=== PATIENT | male | born 1935 | race Hispanic/Latino ===

== ENCOUNTER 2017-11-13 22:49 | Emergency (ER) | payer OTHER ==
[~2017-11-13 22:49] MED LIST: ALBU18HF7 IH; ALBU2.5V2 IH; ATOR20TA65 PO; CILO50TA PO; DIGO0.12 PO; DILT120C47 PO; FURO40TA5 PO; INSU100V12 SQ; LINA5TAB PO; METO50TA18 PO; MOME220A2 IH; MONT10TA24 PO; MV,M1TAB4 PO; THEO400T3 PO; TIOT18CA3 IH; VALS80TA30 PO; [UNRECOGNIZED DRUG - OTHER] PO
[2017-11-13] MEDS ORDERED: SODIUM CHLORIDE 0.9% 1000ML 1,000 ML IV ONE (23:20)
[2017-11-14] MEDS ORDERED: HYDRALAZINE HCL 20 MG/ML VIAL ONE
[2017-11-14 00:03] LABS: CREATININE 1.2 mg/dL (0.5-1.5); POTASSIUM 3.7 mmol/L (3.5-5.1)
[2017-11-14 00:08] LABS: ALBUMIN 3.3 g/dL (3.5-5.0); BILIRUBIN,TOTAL 0.5 mg/dL (0.2-1.0); INR 1.18 (0.85-1.15); PARTIAL THROMBOPLASTIN TIME 41.1 SEC (26.3-35.5); PROTHROMBIN TIME 12.4 SEC (9.6-11.6); TOTAL PROTEIN, SERUM 7.1 g/dL (6.0-8.3)
[2017-11-14 00:11] LABS: BASOPHILS % (AUTO) 0.8 % (0.0-5.0); EOSINOPHILS % (AUTO) 2.5 % (0.0-8.0); HEMATOCRIT 39.7 % (42-54); LYMPHOCYTES % (AUTO) 22.5 % (21.0-51.0); MEAN CORPUSCULAR HEMOGLOBIN 30.4 pg (27.0-33.0); MEAN CORPUSCULAR HGB CONC 33.7 g/dL (32.0-36.0); MONOCYTES % (AUTO) 7.5 % (3.0-13.0); NEUTROPHILS % (AUTO) 66.7 % (40.0-77.0); PLATELET COUNT (AUTO) 229 K/uL (130-400); RED BLOOD CELL COUNT(AUTO) 4.41 MIL/uL (4.50-6.20); RED CELL DISTRIBUTION WIDTH 16.8 % (11.0-15.5); WHITE BLOOD COUNT (AUTO) 15.5 K/uL (4.8-10.8)
[2017-11-14] MEDS ORDERED: ISOVUE-370 50ML VIAL IV ONE (00:11)
== END 2017-11-14 02:14 | disposition home or self-care (01) ==
LOC: EDH 22:49
DX: L03.211 Cellulitis of face (principal); E11.9 Type 2 diabetes mellitus without complications; E78.00 Pure hypercholesterolemia, unspecified; I10 Essential (primary) hypertension; R79.1 Abnormal coagulation profile; I25.10 Atherosclerotic heart disease of native coronary artery without angina pectoris; J44.9 Chronic obstructive pulmonary disease, unspecified; Z98.890 Other specified postprocedural states
CPT/HCPCS: 36415; 70487; 80053; 85025; 85610; 85730; 93005; 99285; J0360; J7030; Q9967

== ENCOUNTER 2017-11-16 00:10 | Inpatient (IN) | payer OTHER ==
[~2017-11-16] VITALS: Ht 170.2 cm; Wt 71.4 kg
[2017-11-16] MEDS ORDERED: NITROGLYCERIN 0.4 MG SL TAB SL ONE (00:30)
[2017-11-16 00:31] LABS: PLATELET COUNT (AUTO) 230 K/uL (130-400)
[2017-11-16 00:38] LABS: CREATININE 1.2 mg/dL (0.5-1.5); POTASSIUM 3.6 mmol/L (3.5-5.1)
[2017-11-16 00:39] LABS: BASOPHILS % (AUTO) 0.7 % (0.0-5.0); EOSINOPHILS % (AUTO) 3.5 % (0.0-8.0); INR 1.05 (0.85-1.15); LYMPHOCYTES % (AUTO) 34.6 % (21.0-51.0); MEAN CORPUSCULAR HEMOGLOBIN 30.5 pg (27.0-33.0); MEAN CORPUSCULAR HGB CONC 33.7 g/dL (32.0-36.0); MEAN CORPUSCULAR VOLUME 90.6 fL (79-99); MONOCYTES % (AUTO) 7.9 % (3.0-13.0); NEUTROPHILS % (AUTO) 53.3 % (40.0-77.0); PARTIAL THROMBOPLASTIN TIME 34.2 SEC (26.3-35.5); RED BLOOD CELL COUNT(AUTO) 4.19 MIL/uL (4.50-6.20); RED CELL DISTRIBUTION WIDTH 17.2 % (11.0-15.5); WHITE BLOOD COUNT (AUTO) 12.9 K/uL (4.8-10.8)
[2017-11-16 00:51] LABS: ALBUMIN 2.9 g/dL (3.5-5.0); BILIRUBIN,TOTAL 0.3 mg/dL (0.2-1.0); CREATINE KINASE MB 5.1 ng/mL (0.5-3.6); TOTAL PROTEIN, SERUM 6.6 g/dL (6.0-8.3)
[2017-11-16] MEDS ORDERED: ASPIRIN 325 MG TABLET ONE (04:09)
[2017-11-16 04:41] VITALS: BP 172/92
[2017-11-16] MEDS ORDERED: POTASSIUM CHLORIDE 20MEQ/100ML 100 ML IV PRN (05:15)
[2017-11-16] MEDS ORDERED: LIDOCAINE HCL-MPF 1% 2ML VIAL IJ PRN (05:15)
[2017-11-16] MEDS ORDERED: POTASSIUM CHLORIDE 20 MEQ ERTAB PO PRN (05:15)
[2017-11-16] MEDS ORDERED: POTASSIUM CHLORIDE 10% ELIXIR 20 MEQ/15 ML UDCUP PO PRN (05:15)
[2017-11-16] MEDS ORDERED: METOPROLOL TARTRATE 25 MG TAB ONE (06:03)
[2017-11-16 07:11] LABS: CREATINE KINASE MB 6.1 ng/mL (0.5-3.6); TROPONIN I 0.43 ng/mL (0.00-0.06)
[2017-11-16] MEDS ORDERED: SODIUM CHLORIDE 0.9% 10 ML VIAL IVP PRN (07:30)
[2017-11-16 08:00] VITALS: BP 138/73
[2017-11-16] MEDS ORDERED: ENOXAPARIN SODIUM 40 MG/0.4 ML SYRINGE SQ SCH (09:00)
[2017-11-16] MEDS: METOPROLOL TARTRATE 25 MG TAB PO SCH ×2 (09:00→21:34)
[2017-11-16] MEDS: NITROGLYCERIN 1GM/1 INCH PACKET TD SCH ×3 (09:59→21:35)
[2017-11-16] MEDS: ASPIRIN 81MG TAB.CHEW PO SCH (09:59)
[2017-11-16] MEDS ORDERED: OMEG-112 PO (10:17)
[2017-11-16] MEDS ORDERED: TYL3B PO (10:17)
[2017-11-16] MEDS ORDERED: DIGO125T87 PO (10:17)
[2017-11-16] MEDS ORDERED: METO-391 PO (10:17)
[2017-11-16] MEDS ORDERED: FLUT1AER IH (10:17)
[2017-11-16] MEDS ORDERED: CEPH500T PO (10:23)
[2017-11-16] MEDS ORDERED: CLIN300C9 PO (10:23)
[2017-11-16 11:00] VITALS: BP 118/69
[2017-11-16] MEDS: CEPHALEXIN 500 MG CAPSULE PO SCH ×2 (12:04→21:35)
[2017-11-16 12:42] LABS: CREATINE KINASE MB 5.5 ng/mL (0.5-3.6); TROPONIN I 0.46 ng/mL (0.00-0.06)
[2017-11-16] MEDS: CLOPIDOGREL BISULFATE 75 MG TAB PO SCH (13:51)
[2017-11-16] MEDS: ENOXAPARIN SODIUM 40 MG/0.4 ML SYRINGE SQ SCH (13:52)
[2017-11-16] MEDS: CLINDAMYCIN HCL 150 MG CAP PO SCH ×2 (14:00→21:35)
[2017-11-16 16:00] VITALS: BP 152/76
[2017-11-16] MEDS: ISOSORBIDE MONO 60 MG TAB.SR PO SCH (17:39)
[2017-11-16] MEDS ORDERED: DEXTROSE 50%-WATER 50 ML DISP.SYRIN IV PRN (17:45)
[2017-11-16] MEDS ORDERED: GLUCAGON 1MG KIT 1 MG ML IM PRN (17:45)
[2017-11-16] MEDS: BUDESONIDE 0.5 MG/2 ML INH IH SCH (19:01)
[2017-11-16] MEDS: ALBUTEROL SULFATE 0.083% 2.5 MG/3 ML INH IH SCH ×2 (19:01→23:50)
[2017-11-16 20:37] VITALS: BP 136/54
[2017-11-16] MEDS: PANTOPRAZOLE SODIUM 40 MG TABLET.DR PO SCH (21:34)
[2017-11-16] MEDS: MONTELUKAST SODIUM 10 MG TAB PO SCH (21:34)
[2017-11-16] MEDS: ATORVASTATIN CALCIUM 20 MG TABLET PO SCH (21:35)
[2017-11-17 00:35] VITALS: BP 122/56
[2017-11-17] MEDS: NITROGLYCERIN 1GM/1 INCH PACKET TD SCH ×4 (02:37→20:45)
[2017-11-17 06:12] VITALS: BP 143/65
[2017-11-17] MEDS: ALBUTEROL SULFATE 0.083% 2.5 MG/3 ML INH IH SCH ×4 (06:28→23:18)
[2017-11-17] MEDS: BUDESONIDE 0.5 MG/2 ML INH IH SCH ×2 (06:41→18:48)
[2017-11-17] MEDS: INSULIN GLARGINE 100 UNITS/ML 10 ML VIAL SQ SCH (07:14)
[2017-11-17] MEDS: INSULIN HUMULIN R 100 UNIT/ML 3ML SQ SCH ×4 (07:30→21:00)
[2017-11-17 08:00] VITALS: BP 131/60
[2017-11-17] MEDS ORDERED: MAGNESIUM 2GM PREMIX 50ML 50 ML IV SCH (08:00)
[2017-11-17] MEDS ORDERED: FLUTICASONE/VILANTEROL 1 EACH AER.POW.BA IH SCH (09:00)
[2017-11-17] MEDS: ENOXAPARIN SODIUM 40 MG/0.4 ML SYRINGE SQ SCH (09:20)
[2017-11-17] MEDS: CLINDAMYCIN HCL 150 MG CAP PO SCH ×3 (09:21→22:57)
[2017-11-17] MEDS: CLOPIDOGREL BISULFATE 75 MG TAB PO SCH (09:21)
[2017-11-17] MEDS: METOPROLOL TARTRATE 25 MG TAB PO SCH ×2 (09:22→22:56)
[2017-11-17] MEDS: ISOSORBIDE MONO 60 MG TAB.SR PO SCH (09:22)
[2017-11-17] MEDS: ASPIRIN 81MG TAB.CHEW PO SCH (09:22)
[2017-11-17] MEDS: FUROSEMIDE 40 MG TABLET PO SCH (09:22)
[2017-11-17] MEDS: CEPHALEXIN 500 MG CAPSULE PO SCH ×2 (09:22→22:56)
[2017-11-17] MEDS: PANTOPRAZOLE SODIUM 40 MG TABLET.DR PO SCH (09:22)
[2017-11-17] MEDS: POTASSIUM CHLORIDE 10% ELIXIR 20 MEQ/15 ML UDCUP PO SCH (09:23)
[2017-11-17 11:00] VITALS: BP 134/69
[2017-11-17 16:00] VITALS: BP 129/70
[2017-11-17 20:00] VITALS: BP 160/78
[2017-11-17] MEDS: ATORVASTATIN CALCIUM 20 MG TABLET PO SCH (22:56)
[2017-11-17] MEDS: MONTELUKAST SODIUM 10 MG TAB PO SCH (22:57)
[2017-11-18] VITALS (13 sets, daily range): BP systolic 120–155; BP diastolic 62–80
[2017-11-18] MEDS: NITROGLYCERIN 1GM/1 INCH PACKET TD SCH ×4 (03:42→22:47)
[2017-11-18] MEDS: INSULIN HUMULIN R 100 UNIT/ML 3ML SQ SCH ×4 (06:15→21:00)
[2017-11-18] MEDS: METOPROLOL TARTRATE 25 MG TAB PO SCH ×2 (06:16→22:47)
[2017-11-18] MEDS: INSULIN GLARGINE 100 UNITS/ML 10 ML VIAL SQ SCH (06:16)
[2017-11-18] MEDS: ALBUTEROL SULFATE 0.083% 2.5 MG/3 ML INH IH SCH ×4 (06:42→23:37)
[2017-11-18] MEDS: BUDESONIDE 0.5 MG/2 ML INH IH SCH ×2 (07:00→18:21)
[2017-11-18] MEDS ORDERED: SODIUM CHLORIDE 0.9% 500ML 500 ML IV SCH (07:00)
[2017-11-18 07:11] LABS: HEMATOCRIT 32.9 % (42-54); MEAN CORPUSCULAR HEMOGLOBIN 31.5 pg (27.0-33.0); MEAN CORPUSCULAR HGB CONC 35.1 g/dL (32.0-36.0); MEAN CORPUSCULAR VOLUME 89.7 fL (79-99); NUCLEATED RED BLOOD CELLS 0.1 % (0.0-0.19); PLATELET COUNT (AUTO) 231 K/uL (130-400); RED BLOOD CELL COUNT(AUTO) 3.67 MIL/uL (4.50-6.20); RED CELL DISTRIBUTION WIDTH 17.1 % (11.0-15.5)
[2017-11-18 07:35] LABS: ALBUMIN 2.7 g/dL (3.5-5.0); BILIRUBIN,TOTAL 0.3 mg/dL (0.2-1.0); MAGNESIUM 1.8 mg/dL (1.80-2.40); POTASSIUM 3.6 mmol/L (3.5-5.1); TOTAL PROTEIN, SERUM 5.9 g/dL (6.0-8.3)
[2017-11-18 07:52] LABS: INR 1.01 (0.85-1.15); PARTIAL THROMBOPLASTIN TIME 30.8 SEC (26.3-35.5); PROTHROMBIN TIME 10.6 SEC (9.6-11.6)
[2017-11-18] MEDS: ENOXAPARIN SODIUM 40 MG/0.4 ML SYRINGE SQ SCH (09:00)
[2017-11-18] MEDS: PANTOPRAZOLE SODIUM 40 MG TABLET.DR PO SCH (09:00)
[2017-11-18] MEDS: POTASSIUM CHLORIDE 10% ELIXIR 20 MEQ/15 ML UDCUP PO SCH (09:00)
[2017-11-18] MEDS: CLINDAMYCIN HCL 150 MG CAP PO SCH ×3 (09:00→22:47)
[2017-11-18] MEDS: ASPIRIN 81MG TAB.CHEW PO SCH (09:00)
[2017-11-18] MEDS: ISOSORBIDE MONO 60 MG TAB.SR PO SCH (09:00)
[2017-11-18] MEDS: CLOPIDOGREL BISULFATE 75 MG TAB PO SCH (09:00)
[2017-11-18] MEDS: FUROSEMIDE 40 MG TABLET PO SCH (09:00)
[2017-11-18] MEDS: CEPHALEXIN 500 MG CAPSULE PO SCH ×2 (09:00→22:47)
[2017-11-18] MEDS ORDERED: LIDOCAINE HCL 2% 20ML ONE (13:40)
[2017-11-18] MEDS ORDERED: HEPARIN SODIUM 1000UNIT/ML 10ML VIAL ONE (13:40)
[2017-11-18] MEDS ORDERED: NITROGLYCERIN 5 MG/ML 10 ML VIAL IV ONE (13:40)
[2017-11-18] MEDS ORDERED: ISOVUE-370 50ML VIAL IV ONE ×2 (13:40→14:31)
[2017-11-18] MEDS ORDERED: IOPAMIDOL-370 100 ML VIAL IV ONE (13:40)
[2017-11-18] MEDS ORDERED: IOPAMIDOL-370 75 ML VIAL IV ONE (13:55)
[2017-11-18] MEDS ORDERED: BIVALIRUDIN 250 MG/VIAL IV ONE (14:07)
[2017-11-18] MEDS ORDERED: LABETALOL HCL 5 MG/ML 20ML VIAL IV ONE (14:41)
[2017-11-18] MEDS ORDERED: SODIUM CHLORIDE 0.9% 1000ML 1,000 ML IV SCH (14:48)
[2017-11-18] MEDS ORDERED: DEXTROSE 50%-WATER 50 ML DISP.SYRIN IV PRN (15:00)
[2017-11-18] MEDS ORDERED: GLUCAGON 1MG KIT 1 MG ML IM PRN (15:00)
[2017-11-18] MEDS: MONTELUKAST SODIUM 10 MG TAB PO SCH (22:47)
[2017-11-18] MEDS: ATORVASTATIN CALCIUM 20 MG TABLET PO SCH (22:47)
[2017-11-19 03:00] VITALS: BP 117/67
[2017-11-19] MEDS ORDERED: ACETAMINOPHEN 325 MG TAB PO PRN (06:00)
[2017-11-19] MEDS ORDERED: ACETAMINOPHEN 325 MG TAB ONE (06:03)
[2017-11-19] MEDS: NITROGLYCERIN 1GM/1 INCH PACKET TD SCH ×2 (06:06→09:50)
[2017-11-19] MEDS: INSULIN HUMULIN R 100 UNIT/ML 3ML SQ SCH ×2 (06:15→13:53)
[2017-11-19] MEDS: BUDESONIDE 0.5 MG/2 ML INH IH SCH (06:21)
[2017-11-19] MEDS: ALBUTEROL SULFATE 0.083% 2.5 MG/3 ML INH IH SCH ×2 (06:21→11:18)
[2017-11-19] MEDS: INSULIN GLARGINE 100 UNITS/ML 10 ML VIAL SQ SCH (07:30)
[2017-11-19 07:55] VITALS: BP 139/70
[2017-11-19] MEDS ORDERED: ASPI-1005 PO (07:57)
[2017-11-19] MEDS ORDERED: RIVA20TA PO (07:57)
[2017-11-19] MEDS ORDERED: METO-391 PO (07:57)
[2017-11-19] MEDS ORDERED: ENOXAPARIN SODIUM 80 MG/0.8 ML SQ ONE (09:00)
[2017-11-19] MEDS: FUROSEMIDE 40 MG TABLET PO SCH (09:53)
[2017-11-19] MEDS: ASPIRIN 81MG TAB.CHEW PO SCH (09:53)
[2017-11-19] MEDS: PANTOPRAZOLE SODIUM 40 MG TABLET.DR PO SCH (09:53)
[2017-11-19] MEDS: CLINDAMYCIN HCL 150 MG CAP PO SCH ×2 (09:53→13:46)
[2017-11-19] MEDS: CEPHALEXIN 500 MG CAPSULE PO SCH (09:53)
[2017-11-19] MEDS: METOPROLOL TARTRATE 25 MG TAB PO SCH (09:53)
[2017-11-19] MEDS: ISOSORBIDE MONO 60 MG TAB.SR PO SCH (09:53)
[2017-11-19] MEDS: POTASSIUM CHLORIDE 10% ELIXIR 20 MEQ/15 ML UDCUP PO SCH (09:54)
[2017-11-19 11:33] VITALS: BP 148/66
== END 2017-11-19 14:15 | disposition home or self-care (01) | DRG 280 ==
LOC: EDH 00:10 → 3CH 04:00 → OBSVTOIN 04:00
PROVIDERS: ADMIT Internal Medicine; ATTEND Internal Medicine
PROC: 4A023N7 Measurement of Cardiac Sampling and Pressure, Left Heart, Percutaneous Approach (ICD-10-PCS; principal; 2017-11-18)
PROC: B2151ZZ Fluoroscopy of Left Heart using Low Osmolar Contrast (ICD-10-PCS; 2017-11-18)
PROC: B2111ZZ Fluoroscopy of Multiple Coronary Arteries using Low Osmolar Contrast (ICD-10-PCS; 2017-11-18)
DX: I25.110 Atherosclerotic heart disease of native coronary artery with unstable angina pectoris (principal); I21.4 Non-ST elevation (NSTEMI) myocardial infarction; I50.43 Acute on chronic combined systolic (congestive) and diastolic (congestive) heart failure; L03.114 Cellulitis of left upper limb; I16.1 Hypertensive emergency; I13.0 Hypertensive heart and chronic kidney disease with heart failure and stage 1 through stage 4 chronic kidney disease, or unspecified chronic kidney disease; E78.5 Hyperlipidemia, unspecified; J44.9 Chronic obstructive pulmonary disease, unspecified; E11.22 Type 2 diabetes mellitus with diabetic chronic kidney disease; N18.9 Chronic kidney disease, unspecified; I25.5 Ischemic cardiomyopathy; I48.0 Paroxysmal atrial fibrillation; Z95.0 Presence of cardiac pacemaker; Z79.01 Long term (current) use of anticoagulants; Z90.2 Acquired absence of lung [part of]; Z86.11 Personal history of tuberculosis
CPT/HCPCS: 36415; 71045; 80053; 82550; 82553; 82948; 83735; 83874; 83880; 84484; 85025; 85027; 85610; 85730; 93005; 93306; 93458; 94640; 94664; C1760; C1894; J0583; J1644; J1650; J1815; J3475; J3490; J7030; Q9967

== ENCOUNTER 2022-08-08 15:49 | Emergency (ER) | payer OTHER ==
[~2022-08-08] VITALS: Ht 172.7 cm; Wt 78.0 kg
[~2022-08-08 15:49] MED LIST changes: -ALBU2.5V2 IH; +ASPI-1005 PO; -CILO50TA PO; -DIGO0.12 PO; -DILT120C47 PO; +FLUT1AER IH; -LINA5TAB PO; +METO-391 PO; -METO50TA18 PO; -MOME220A2 IH; +MONT-39 PO; -MONT10TA24 PO; +RIVA20TA PO; -THEO400T3 PO; -TIOT18CA3 IH; -VALS80TA30 PO
[2022-08-08 16:03] VITALS: BP 128/59
[2022-08-08] MEDS ORDERED: FUROSEMIDE 40MG VIAL IV ONE ×2 (16:30→18:00)
[2022-08-08 16:53] LABS: BASOPHILS % (AUTO) 0.2 % (0.0-5.0); EOSINOPHILS % (AUTO) 0.7 % (0.0-8.0); HEMATOCRIT 27.6 % (42-54); LYMPHOCYTES % (AUTO) 6.6 % (21.0-51.0); MEAN CORPUSCULAR HEMOGLOBIN 26.9 pg (27.0-33.0); MEAN CORPUSCULAR HGB CONC 31.5 g/dL (32.0-36.0); MEAN CORPUSCULAR VOLUME 85.4 fL (79-99); MONOCYTES % (AUTO) 5.3 % (3.0-13.0); NEUTROPHILS % (AUTO) 86.7 % (40.0-77.0); NUCLEATED RED BLOOD CELLS 0.3 % (0.0-0.19); PLATELET COUNT (AUTO) 163 K/uL (130-400); RED BLOOD CELL COUNT(AUTO) 3.23 MIL/uL (4.50-6.20); WHITE BLOOD COUNT (AUTO) 12.5 K/uL (4.8-10.8)
[2022-08-08 17:14] LABS: B-TYPE NATRIURETIC PEPTIDE 2530 pg/mL (0-100)
[2022-08-08 17:49] LABS: APPEARANCE,URINE CLEAR (CLEAR); BILIRUBIN,URINE NEGATIVE (NEGATIVE); COLOR,URINE YELLOW (YELLOW); GLUCOSE, URINE (UA) NEGATIVE (NEGATIVE); KETONES,URINE NEGATIVE (NEGATIVE); LEUKOCYTE ESTERASE ,URINE NEGATIVE Leu/uL (NEGATIVE); NITRATE,URINE NEGATIVE (NEGATIVE); PH,URINE 5.5 (5.0-8.0); PROTEIN,URINE 20 mg/dL (NEGATIVE); UROBILINOGEN,URINE 0.2 mg/dL (0.2-1.0)
[2022-08-08 17:49] LABS: ALBUMIN 2.2 g/dL (3.5-5.0); CREATININE 1.1 mg/dL (0.5-1.5); POTASSIUM 5.1 mmol/L (3.5-5.1); TOTAL PROTEIN, SERUM 5.6 g/dL (6.0-8.3)
[2022-08-08] MEDS ORDERED: FURO40TA7 PO (18:20)
[2022-08-08] MEDS ORDERED: POTA-192 PO ×2 (18:20→18:21)
[2022-08-08] MEDS ORDERED: ZARO5 PO (18:20)
[2022-08-08 18:28] LABS: MUCUS,URINE RARE LPF (None Seen); OTHER CASTS, URINE 1 /LPF (None Seen); SQUAMOUS EPITHELIAL CELL,UR RARE /HPF (0-2); YEAST,URINE BUDDING RARE /HPF (None Seen)
== END 2022-08-08 19:18 | disposition home or self-care (01) ==
LOC: EDH 15:49
DX: I11.0 Hypertensive heart disease with heart failure (principal); I50.9 Heart failure, unspecified; I25.10 Atherosclerotic heart disease of native coronary artery without angina pectoris; J44.9 Chronic obstructive pulmonary disease, unspecified; E11.9 Type 2 diabetes mellitus without complications; Z79.51 Long term (current) use of inhaled steroids; Z79.82 Long term (current) use of aspirin; Z79.899 Other long term (current) drug therapy; Z95.810 Presence of automatic (implantable) cardiac defibrillator
CPT/HCPCS: 99285; 93970; 96374; 71045; 84484; 80053; 83880; 85025; 81001; 36415; 76870; 93005; J1940